=== PATIENT | female | born 1985 ===

== ENCOUNTER 2017-05-19 16:28 | Emergency (ER) | payer MEDICAID ==
[2017-05-19 16:36] VITALS: BMI 34.7
[2017-05-19] MEDS ORDERED: DiphenhydrAMINE 50 mg/ml Inj IVP STA (16:49)
--- NOTE | 2017-05-19 16:58 | ED PDOC ---
Arrival/HPI - General Historian: Patient - General Chief Complaint: Headache Time Seen by Provider: 05/19/17 16:38 - History of Present Illness Narrative History of Present Illness (Text): 05/19/17 16:56 32 yo F w/ no PMH reports 2 day h/o L sided constant headache associated with general weakness, lightheadedness, nausea, L arm discomfort and discomfort to the center of her chest which is intermittent. Otherwise: (-) thunderclap headache, (-) worse headache of life, (-) SOB, (-) palpitations, (-) vomiting, ( -) abdominal pain, (-) diarrhea, (-) urinary symptoms, (-) photophobia, (-) phonophobia, (-) URI symptoms, (-) fever, (-) trauma, (-) subjective neurologic symptoms, (-) sick contacts, (-) recent illness, (-) recent travel. (Kj FOLEY,Lilli Snowden) Past Medical History - Infectious Disease Hx of Infectious Diseases: None - Cardiac Hx Cardiac Disorders: Yes Hx Cardiac Arrhythmia: Yes Other/Comment: "heart problem" - Psychiatric Hx Substance Use: No - Anesthesia Hx Anesthesia: No Family/Social History Family/Social History: No Known Family HX Smoking Status: Never Smoked Hx Alcohol Use: No Hx Substance Use: No Allergies/Home Meds Allergies/Adverse Reactions: Allergies No Known Allergies Allergy (Unverified 09/21/13 18:26) Home Medications: Home Meds Medication Instructions Recorded Confirmed Aspirin [Aspirin Chewable] 1 tab PO DAILY 05/19/17 05/19/17 Review of Systems - Review of Systems Constitutional: Fatigue. absent: Weight Change, Fevers Eyes: absent: Vision Changes, Photophobia, Eye Pain ENT: absent: Hearing Changes, Sore Throat, Rhinorrhea Respiratory: absent: SOB, Cough, Sputum Cardiovascular: Chest Pain. absent: Palpitations, Edema Gastrointestinal: Nausea. absent: Abdominal Pain, Diarrhea, Vomiting Genitourinary Female: absent: Dysuria, Frequency Musculoskeletal: absent: Arthralgias, Back Pain, Neck Pain Skin: absent: Rash, Pruritis, Skin Lesions Neurological: Headache, Dizziness. absent: Focal Weakness Physical Exam - Physical Exam Narrative Physical Exam (Text): 05/19/17 17:00 GENERAL APPEARANCE: Patient is awake, alert, oriented x 3, in no acute distress. SKIN: Warm, dry; (-) cyanosis; (-) rash. HEAD: (-) scalp swelling or tenderness, (-) temporal artery tenderness. EYES: (-) conjunctival pallor, (-) scleral icterus. ENMT: (-) sinus tenderness; mucous membranes moist. NECK: (-) tenderness, (-) stiffness, (-) meningismus, (-) lymphadenopathy. CHEST AND RESPIRATORY: (-) rales, (-) rhonchi, (-) wheezes; breath sounds equal bilaterally. HEART AND CARDIOVASCULAR: (-) irregularity; (-) murmur, (-) gallop. ABDOMEN AND GI: Soft; (-) tenderness. EXTREMITIES: (-) deformity. NEURO AND PSYCH: Mental status as above. 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 Strength and DTRs symmetric. Babinski normal bilaterally. (Kj FOLEY,Lilli Snowden) Vital Signs Temp Pulse Resp BP Pulse Ox 05/19/17 19:58 73 18 127/76 99 05/19/17 17:06 98.2 F 70 18 138/79 97 Medical Decision Making ED Course and Treatment: 05/19/17 16:59 32 yo F w/ no PMH reports 2 day h/o L sided constant headache associated with general weakness, nausea, L arm discomfort and discomfort to the center of her chest which is intermittent. Plan : Labs EKG Uhcg IV Reglan IV Toradol IV Benadryl IV Uhcg (-) EKG : NSR at 77 bpm, no acute ST changes, as read by PA Labs reviewed and are wnl. On re-evaluation, patient reports improvement of symptoms, reports no headache, dizziness, or CP. VSS. Repeat neuro exam shows no focal findings. Dx of headache , likely due to migraine was d/w the patient. Advised to follow up with primary care physician in 1-2 days without fail. Advised to take medication as prescribed. Return to the emergency room at any time for any new or worsening symptoms. Patient states she fully agrees with and understands discharge instructions. States that she agrees with the plan and disposition. Verbalized and repeated discharge instructions and plan. I have given the patient opportunity to ask any additional questions. (UnderwoodLilli sandoval PA-C - Lab Interpretations Microbiology Results: Microbiology Results 05/20/17 06:38 Urine Urine Culture - Final No Growth (<1,000 CFU/ML) Lab Results: 05/19/17 17:45 05/19/17 17:45 Lab Results 05/19/17 17:45: Sodium 138, Potassium 4.1, Chloride 103, Carbon Dioxide 26, Anion Gap 13, BUN 20, Creatinine 1.1, Est GFR ( Amer) > 60, Est GFR (Non- Af Amer) 58, Random Glucose 99, Calcium 9.6, Magnesium 2.7 H, Total Bilirubin 0.2, AST 24, ALT 27, Alkaline Phosphatase 48, Lactate Dehydrogenase 440, Total Creatine Kinase 142, Troponin I < 0.01, Total Protein 7.4, Albumin 4.0, Globulin 3.3, Albumin/Globulin Ratio 1.2 05/19/17 17:45: WBC 5.3, RBC 4.23, Hgb 12.6, Hct 38.1, MCV 90.1, MCH 29.8, MCHC 33.1, RDW 12.7, Plt Count 347, MPV 9.1, Gran % 45.6 L, Lymph % (Auto) 45.6 H, [place] % (Auto) 7.3 H, Eos % (Auto) 1.3 L, Baso % (Auto) 0.2, Gran # 2.43, Lymph # (Auto) 2.4, [place] # (Auto) 0.4, Eos # (Auto) 0.1, Baso # (Auto) 0.01 05/19/17 17:30: Urine Color Yellow, Urine Appearance Clear, Urine pH 7.0, Ur Specific [place] 1.015, Urine Protein Negative, Urine Glucose (UA) Negative, Urine Ketones Trace H, Urine Blood Negative, Urine Nitrate Negative, Urine Bilirubin Negative, Urine Urobilinogen 0.2, Ur Leukocyte Esterase Negative - Medication Orders Current Medication Orders: Discontinued Medications Diphenhydramine HCl (Benadryl) 25 mg IVP STAT STA Stop: 05/19/17 16:50 Last Admin: 05/19/17 17:43 Dose: 25 mg IVP Administration Document 05/19/17 17:43 EQ (Rec: 05/19/17 17:43 EQ [id number]) Charges for Administration # of IVP Administrations 1 Sodium Chloride (Sodium Chloride 0.9%) 100 mls @ 1,000 mls/hr IV .Q6M MEGHNA Last Admin: 05/19/17 17:44 Dose: 1,000 mls/hr eMAR Start Stop Document 05/19/17 17:44 EQ (Rec: 05/19/17 17:44 EQ [id number]) Intravenous Solution Start Date 05/19/17 Start Time 17:44 Sodium Chloride (Sodium Chloride 0.9%) 1,000 mls @ 1,000 mls/hr IV .Q1H MEGHNA Stop: 05/19/17 20:44 Ketorolac Tromethamine (Toradol) 30 mg IVP STAT STA Stop: 05/19/17 16:49 Last Admin: 05/19/17 17:43 Dose: 30 mg MAR Pain Assessment Document 05/19/17 17:43 EQ (Rec: 05/19/17 17:43 EQ [id number]) Pain Reassessment Is this a pain reassessment? No Sleep Is patient sleeping during reassessment? No Presence of Pain Presence of Pain Yes IVP Administration Document 05/19/17 17:43 EQ (Rec: 05/19/17 17:43 EQ [id number]) Charges for Administration # of IVP Administrations 1 Metoclopramide HCl (Reglan) 10 mg IVP STAT STA Stop: 05/19/17 16:49 Last Admin: 05/19/17 17:43 Dose: 10 mg IVP Administration Document 05/19/17 17:43 EQ (Rec: 05/19/17 17:43 EQ [id number]) Charges for Administration # of IVP Administrations 1 - PA / SALES PERSON / Resident Statement MD/DO has reviewed & agrees with the documentation as recorded. Disposition/Present on Arrival - Present on Arrival Any Indicators Present on Arrival: No History of DVT/PE: No History of Uncontrolled Diabetes: No Urinary Catheter: No History of Decub. Ulcer: No History Surgical Site Infection Following: None - Disposition Have Diagnosis and Disposition been Completed?: Yes Disposition Time: 19:15 Patient Plan: Discharge - Disposition Diagnosis: Headache Disposition: HOME/ ROUTINE Condition: IMPROVED Discharge Instructions (ExitCare): Migraine Headache (DC) Additional Instructions: Thank you for letting us take care of you today. You were treated for headache, likely migraine. The emergency medical care you received today was directed at your acute symptoms. If you were prescribed any medication, please fill it and take as directed. It may take several days for your symptoms to resolve. Return to the Emergency Department if your symptoms worsen, do not improve, or if you have any other problems. Please contact your doctor in 2 days for re-evaluation and follow up. Bring any paperwork you were given at discharge with you along with any medications you are taking to your follow up visit. Our treatment cannot replace ongoing medical care by a primary care provider (PCP) outside of the emergency department. Thank you for allowing the [facility] team to be part of your care today. Prescriptions: Metoclopramide HCl [Reglan] 10 mg PO QID PRN #20 tablet PRN Reason: Other Naproxen 500 mg PO BID PRN #20 tablet PRN Reason: Pain, Moderate (4-7) Referrals: Citlalli Randolph MD [Primary Care Provider] - Follow up with primary Forms: [employer] (Icelandic)
[2017-05-19] MEDS ORDERED: Sodium Chloride 0.9% 1,000 ML IV SCH ×3 (17:00→19:45)
[2017-05-19 17:06] VITALS: RESP 18; TEMP 98.2
[2017-05-19 17:52] LABS: URINE APPEARANCE CLEAR (CLEAR); URINE BILIRUBIN NEGATIVE (NEGATIVE); URINE BLOOD NEGATIVE (NEGATIVE); URINE COLOR YELLOW (YELLOW); URINE GLUCOSE (UA) NEGATIVE (NEGATIVE); URINE LEUKOCYTE ESTERASE NEGATIVE Leu/uL (NEGATIVE); URINE PROTEIN NEGATIVE mg/dL (<30 mg/dL); URINE UROBILINOGEN 0.2 E.U./dL (<1 E.U./dL)
[2017-05-19 18:14] LABS: BASO # 0.01 K/mm3 (0.0-2.0); BASO % 0.2 % (0.0-3.0); EOS # 0.1 (0.0-0.7); EOS % 1.3 % (1.5-5.0); GRAN # 2.43 (1.4-6.5); GRAN % 45.6 % (50.0-68.0); HEMOGLOBIN 12.6 g/dL (12.0-16.0); LYMPH # 2.4 (1.2-3.4); LYMPH % 45.6 % (22.0-35.0); MEAN CELL VOLUME 90.1 fl (80.0-105.0); MEAN CORPUSCULAR HEMOGLOBIN 29.8 pg (25.0-35.0); MEAN CORPUSCULAR HGB CONC 33.1 g/dl (31.0-37.0); MEAN PLATELET VOLUME 9.1 fl (7.0-11.0); MONO # 0.4 (0.1-0.6); MONO % 7.3 % (1.0-6.0); RBC 4.23 10^6/uL (3.5-6.1); RED CELL DISTRIBUTION WIDTH 12.7 % (11.5-14.5); WHITE BLOOD COUNT 5.3 10^3/ul (4.5-11.0)
[2017-05-19 18:16] LABS: ALB/GLOB RATIO 1.2 (1.1-1.8); ALT/SGPT 27 U/L (7-56); AST/SGOT 24 U/L (14-36); BLOOD UREA NITROGEN 20 mg/dL (7-21); CALCIUM 9.6 mg/dL (8.4-10.5); GFR AFRICAN-AMERICAN > 60; GFR NON-AFRICAN AMERICAN 58
[2017-05-19 18:28] LABS: TROPONIN I < 0.01 ng/mL
[2017-05-19 19:59] VITALS: BP 127/76; PULSE 73; O2SAT 99
--- NOTE | 2017-05-19 21:45 | CARD ---
APPROVED REPORT EKG Measurement Heart [id number] <Conclusion> Normal sinus rhythm Normal ECG
== END 2017-05-19 19:58 | disposition home or self-care (01) ==
LOC: ED 16:28 → MERGE 16:28 → ED 19:58
DX: R51 Headache (principal)
CPT/HCPCS: 80053; 81003; 82550; 83615; 83735; 84484; 85025; 87086; 93005; 96374; 96375; 99285; J1200; J1885; J2765